=== PATIENT | female | born 1980 | race American Indian/Alaskan Native ===

== ENCOUNTER 2019-01-23 09:24 | Emergency (ER) | payer SELFPAY ==
[2019-01-23 09:32] VITALS: BP 135/91
--- NOTE | 2019-01-23 09:45 | Emergency Department Report ---
ED ENT HPI - General Chief complaint: Dental/Oral Stated complaint: RT SIDE TOOTHACHE/HEAD PRESSURE Time Seen by Provider: 01/23/19 09:40 Source: patient Mode of arrival: Ambulatory Limitations: No Limitations - History of Present Illness Initial comments: Chief complaint: I have a tooth abscess HPI this is a 39-year-old female without significant medical history who presents with right lower toothache with possible abscess for the past 4 days. She has mild swelling below her chin. Denies fever. She has pressure in her right ear. MD complaint: tooth pain -: Gradual Location: tooth # (30) Severity: severe Severity scale (0 -10): 8 Quality: aching, dull Consistency: constant Improves with: none Worsens with: eating - Related Data Previous Rx's Medication Instructions Recorded Last Taken Type Clindamycin [Clindamycin CAP] 300 mg PO TID 10 Days #30 cap 01/23/19 Unknown Rx Ibuprofen [Motrin 800 MG tab] 800 mg PO Q8HR PRN #20 tablet 01/23/19 Unknown Rx Allergies Allergy/AdvReac Type Severity Reaction Status Date / Time Penicillins Allergy Rash Verified 01/23/19 09:27 ED Dental HPI - General Chief complaint: Dental/Oral Stated complaint: RT SIDE TOOTHACHE/HEAD PRESSURE Time Seen by Provider: 01/23/19 09:40 Source: patient Mode of arrival: Ambulatory Limitations: No Limitations - Related Data Previous Rx's Medication Instructions Recorded Last Taken Type Clindamycin [Clindamycin CAP] 300 mg PO TID 10 Days #30 cap 01/23/19 Unknown Rx Ibuprofen [Motrin 800 MG tab] 800 mg PO Q8HR PRN #20 tablet 01/23/19 Unknown Rx Allergies Allergy/AdvReac Type Severity Reaction Status Date / Time Penicillins Allergy Rash Verified 01/23/19 09:27 ED Review of Systems ROS: Stated complaint: RT SIDE TOOTHACHE/HEAD PRESSURE Other details as noted in HPI Constitutional: denies: fever, malaise Eyes: denies: eye pain, eye discharge ENT: ear pain, dental pain. denies: throat pain Respiratory: denies: shortness of breath ED Past Medical Hx - Past Medical History Previous Medical History?: Yes Additional medical history: Childbirth x 5 - Surgical History Past Surgical History?: Yes Additional Surgical History: x 5 - Social History Smoking Status: Former Smoker - Medications Home Medications: Home Medications Medication Instructions Recorded Confirmed Last Taken Type Clindamycin [Clindamycin CAP] 300 mg PO TID 10 Days #30 cap 01/23/19 Unknown Rx Ibuprofen [Motrin 800 MG tab] 800 mg PO Q8HR PRN #20 tablet 01/23/19 Unknown Rx ED Physical Exam - General Limitations: No Limitations General appearance: alert, in no apparent distress - Head Head exam: Present: atraumatic, normocephalic - Eye Eye exam: Present: normal appearance - ENT ENT exam: Present: mucous membranes moist, other (mostly edentulous decaying teeth nubs at socket #26-28 mild swelling submandibular region ) - Neck Neck exam: Present: normal inspection, full ROM - GI/Abdominal GI/Abdominal exam: Present: soft. Absent: distended, tenderness, guarding, rebound - Neurological Exam Neurological exam: Present: alert, oriented X3 - Psychiatric Psychiatric exam: Present: normal affect, normal mood - Skin Skin exam: Present: warm, dry, intact, normal color ED Course Vital Signs 01/23/19 09:28 Temperature 98.3 F Pulse Rate 101 H Respiratory 18 Rate Blood Pressure 135/91 O2 Sat by Pulse 99 Oximetry ED Medical Decision Making - Medical Decision Making Odontogenic infection, suspect deep infection of the tooth's root, minimal swelling in the submandibular region rx: clindamycin Critical care attestation.: If time is entered above; I have spent that time in minutes in the direct care of this critically ill patient, excluding procedure time. ED Disposition Clinical Impression: Odontogenic infection of jaw Disposition: DC-01 TO HOME OR SELFCARE Is pt being admited?: No Does the pt Need Aspirin: No Condition: Stable Instructions: Dental Abscess (ED) Prescriptions: Clindamycin [Clindamycin CAP] 300 mg PO TID 10 Days #30 cap Ibuprofen [Motrin 800 MG tab] 800 mg PO Q8HR PRN #20 tablet PRN Reason: Pain , Severe (7-10) Referrals: [facility] [Outside] - 3-5 Days
[2019-01-23] MEDS ORDERED: CLEOCIN PO ONE (09:47)
[2019-01-23] MEDS ORDERED: IBUPROFEN PO ONE (09:47)
== END 2019-01-23 09:58 | disposition home or self-care (01) ==
LOC: ED 09:24
DX: K00.9 Disorder of tooth development, unspecified (principal); Z88.0 Allergy status to penicillin; Z79.899 Other long term (current) drug therapy; Z87.891 Personal history of nicotine dependence
CPT/HCPCS: 99282

== ENCOUNTER 2021-09-21 17:43 | Emergency (ER) | payer SELFPAY ==
[2021-09-21 22:32] LABS: Mean Corpuscular HGB Conc 28 % (30-34); Red Blood Count 5.17 M/mm3 (3.65-5.03)
[2021-09-21 22:35] LABS: Hematocrit 30.3 % (30.3-42.9); Hemoglobin 8.5 gm/dl (10.1-14.3); Mean Corpuscular Volume 59 fl (79-97); Platelet Count 258 K/mm3 (140-440); Red Cell Distribution Width 20.7 % (13.2-15.2)
[2021-09-21] MEDS ORDERED: ONDANSETRON 4 MG ODT TAB PO ONE (23:20)
[2021-09-21] MEDS ORDERED: ACETAMINOPHEN 325 MG TAB PO ONE (23:20)
[2021-09-21] MEDS ORDERED: KETOROLAC 30 MG/1 ML INJ IM ONE (23:20)
--- NOTE | 2021-09-21 23:26 | Emergency Department Report ---
ED General Adult HPI - General Chief complaint: Vaginal Bleeding Stated complaint: BLEEDING 2X WKS/LARGE CLOTS Time Seen by Provider: 09/21/21 22:56 Source: patient, RN notes reviewed, old records reviewed Mode of arrival: Ambulatory Limitations: No Limitations - History of Present Illness Initial comments: The patient was evaluated in the emergency department for symptoms described in the history of present illness. He/she was evaluated in the context of the global COVID-19 pandemic, which necessitated consideration that the patient might be at risk for infection with the virus that causes COVID-19. Institutional protocols and algorithms that pertain to the evaluation of patients at risk for COVID-19 are in a state of rapid change based on in formation released by regulatory bodies including the CDC and federal and state organizations. These policies and algorithms were followed during the patient's care in the emergency department. Please note that these policies, procedures and recommendations changed on a rapid basis. During the history and physical examination, I am chaperoned by Sampson Elizalde This is a 41-year-old female. She does not have a local primary care doctor or chief ophthalmic technician. She reports that she has not seen a physician for approximately 8 years. She presents to the ER today with multiple complaints. Her first complaint is vaginal bleeding and spotting, since August. It is associated lower abdominal cramping. No dysuria. Sexually active with 1 partner. Thinks it is very unlikely that she has an STI. Her next complaint is right upper quadrant pain, right below the breast. It increases with palpation. It has been present for a few days. It decreases with rest. No association with food. No nausea or vomiting. Positive diarrhea. No chest pain or shortness of breath. No DVT or PE risk factors. next complaint is non traumatic right-sided paracervical muscular neck pain, and shoulder pain. Present for days to weeks. Increases with palpation and range of motion. Decreases with rest -: Gradual, week(s) Location: abdomen, right, upper extremity Quality: aching Consistency: other Improves with: other Worsens with: other - Related Data Previous Rx's Medication Instructions Recorded Last Taken Type Acetaminophen [Non-Aspirin Extra 500 mg PO Q6HR PRN #30 tablet 09/22/21 Unknown Rx Strength] Ibuprofen [Motrin] 600 mg PO Q8H PRN #30 tablet 09/22/21 Unknown Rx Nitrofurantoin [place]/M-Cryst 100 mg PO Q12HR #14 capsule 09/22/21 Unknown Rx [Macrobid CAP] Ondansetron [Zofran Odt] 4 mg PO Q8HR PRN #20 tab.rapdis 09/22/21 Unknown Rx Allergies Allergy/AdvReac Type Severity Reaction Status Date / Time Penicillins Allergy Rash Verified 01/23/19 09:27 ED Review of Systems ROS: Stated complaint: BLEEDING 2X WKS/LARGE CLOTS Other details as noted in HPI Constitutional: denies: fever Eyes: denies: eye discharge ENT: denies: epistaxis Respiratory: denies: cough Cardiovascular: denies: chest pain Gastrointestinal: abdominal pain, diarrhea. denies: nausea, vomiting Genitourinary: abnormal menses. denies: urgency, dysuria Musculoskeletal: myalgia Neurological: denies: weakness Hematological/Lymphatic: denies: easy bleeding ED Past Medical Hx - Past Medical History Previous Medical History?: No Additional medical history: Childbirth x 5 - Surgical History Past Surgical History?: Yes Additional Surgical History: x 5 - Social History Smoking Status: Never Smoker Substance Use Type: None - Medications Home Medications: Home Medications Medication Instructions Recorded Confirmed Last Taken Type Acetaminophen [Non-Aspirin Extra 500 mg PO Q6HR PRN #30 tablet 09/22/21 Unknown Rx Strength] Ibuprofen [Motrin] 600 mg PO Q8H PRN #30 tablet 09/22/21 Unknown Rx Nitrofurantoin [place]/M-Cryst 100 mg PO Q12HR #14 capsule 09/22/21 Unknown Rx [Macrobid CAP] Ondansetron [Zofran Odt] 4 mg PO Q8HR PRN #20 tab.rapdis 09/22/21 Unknown Rx ED Physical Exam - General Limitations: No Limitations General appearance: alert, in no apparent distress, obese - Head Head exam: Present: atraumatic, normocephalic - Eye Eye exam: Present: normal appearance, EOMI - ENT ENT exam: Present: normal exam, normal orophraynx, mucous membranes moist, normal external ear exam - Neck Neck exam: Present: normal inspection, full ROM. Absent: tenderness, meningismus - Respiratory Respiratory exam: Present: normal lung sounds bilaterally. Absent: respiratory distress, wheezes, rales, rhonchi, stridor, decreased breath sounds - Cardiovascular Cardiovascular Exam: Present: regular rate, normal rhythm, normal heart sounds. Absent: bradycardia, tachycardia, irregular rhythm, systolic murmur, diastolic murmur, rubs, gallop - GI/Abdominal GI/Abdominal exam: Present: soft, tenderness, other (There is right upper quadrant tenderness to deep palpation. There is suprapubic and lower abdominal tenderness to deep palpation). Absent: distended, guarding, rebound, rigid, pulsatile mass - External exam: Present: normal external exam, bleeding, other (Patient provides consent for gynecologic examination) Speculum exam: Present: normal speculum exam, vaginal bleeding Bi-manual exam: Present: normal bi-manual exam, adnexal tenderness, uterine tenderness, other (Chaperoned by Destiney Elizalde.) - Extremities Exam Extremities exam: Present: normal inspection, full ROM, other (2+ pulses noted in the bilateral upper and lower extremities. There is no palpable cord. negative Homans sign. Muscular compartments are soft. The pelvis is stable.). Absent: pedal edema, calf tenderness - Back Exam Back exam: Present: normal inspection. Absent: tenderness, CVA tenderness (R), CVA tenderness (L), paraspinal tenderness, vertebral tenderness - Neurological Exam Neurological exam: Present: alert, oriented X3, normal gait, other (No facial droop. Tongue midline. Extraocular movements intact bilaterally. Facial sensation intact to light touch in V1, V2, V3 distribution bilaterally. 5 and a 5 strength in 4 extremities. Sensation intact to light touch in 4 extremities.). Absent: motor sensory deficit - Psychiatric Psychiatric exam: Present: normal affect, normal mood - Skin Skin exam: Present: warm, dry, intact, normal color. Absent: rash ED Course Vital Signs 09/21/21 09/21/21 23:29 23:33 Temperature 98.9 F 98.5 F Pulse Rate 78 75 Respiratory 16 12 Rate Blood Pressure 160/88 148/72 [Right] O2 Sat by Pulse 100 100 Oximetry - Reevaluation(s) Reevaluation #1: 09/21/21 23:24 Differential diagnosis, including not limited to: Dysfunctional uterine bleeding, ovarian cyst, ovarian fibroid, biliary colic, cholecystitis, pancreatitis,, musculoskeletal shoulder pain Assessment and plan: 41-year-old female with a body mass index of 33.3, with multiple complaints. First complaint is lower abdominal cramping associated with vaginal bleeding. She is not . Hemoglobin, hematocrit unremarkable. Mildly tender gynecologic examination. Do not suspect PID. Suspect dysfunctional uterine bl eeding. Obtain pelvic ultrasound. Treat symptoms. Next complaint is right upper quadrant pain, with right upper quadrant tenderness. Biliary colic is most likely. Check CMP and lipase, treat symptoms. Have requested that nursing team obtain vital signs. Next complaint is right shoulder and right trapezius pain. Full range of motion, without redness, pus or streaking. Neurovascularly intact. Pain medication, rest, ice, compression, elevation. Expectant management. Reassess. Discussed this plan of care with the patient. She is agreeable to the plan of care 09/22/21 02:57 Urinalysis demonstrates bacteriuria. Start Macrobid. Ultrasound shows evidence of choledocholithiasis, without evidence of cholecystitis. Gynecologic ultrasound is essentially unremarkable. Patient observed in this department for hours without clinical decompensation. We discussed diet lifestyle modifications for presumed biliary colic. Discharged with Macrobid, pain medication, nausea medication, she will need to follow-up with outpatient primary care and/or [employer]. Return precautions are reviewed. All questions answered ED Medical Decision Making - Lab Data Result diagrams: 09/21/21 21:55 09/21/21 23:20 Lab Results 09/21/21 09/21/21 Range/Units 21:55 21:55 WBC 9.7 (4.5-11.0) K/mm3 RBC 5.17 H (3.65-5.03) M/mm3 Hgb 8.5 L (10.1-14.3) gm/dl Hct 30.3 (30.3-42.9) % MCV 59 L (79-97) fl MCH 17 L (28-32) pg MCHC 28 L (30-34) % RDW 20.7 H (13.2-15.2) % Plt Count 258 (140-440) K/mm3 HCG, Quant < 2 (0-4) mIU/mL Lab Results 09/21/21 09/21/21 09/21/21 Range/Units 21:55 21:55 23:20 WBC 9.7 (4.5-11.0) K/mm3 RBC 5.17 H (3.65-5.03) M/mm3 Hgb 8.5 L (10.1-14.3) gm/dl Hct 30.3 (30.3-42.9) % MCV 59 L (79-97) fl MCH 17 L (28-32) pg MCHC 28 L (30-34) % RDW 20.7 H (13.2-15.2) % Plt Count 258 (140-440) K/mm3 Sodium 143 (137-145) mmol/L Potassium 4.7 (3.6-5.0) mmol/L Chloride 105.3 (98-107) mmol/L Carbon Dioxide 24 (22-30) mmol/L Anion Gap 18 mmol/L BUN 14 (7-17) mg/dL Creatinine 0.8 (0.6-1.2) mg/dL Estimated GFR > 60 ml/min BUN/Creatinine Ratio 18 % Glucose 90 (65-100) mg/dL Calcium 9.6 (8.4-10.2) mg/dL Total Bilirubin 0.20 (0.1-1.2) mg/dL AST 15 (5-40) units/L ALT 8 (7-56) units/L Alkaline Phosphatase 92 (35-129) units/L Total Protein 7.4 (6.3-8.2) g/dL Albumin 4.4 (3.9-5) g/dL Albumin/Globulin Ratio 1.5 % Lipase 30 (13-60) units/L HCG, Quant < 2 (0-4) mIU/mL Vital Signs 09/21/21 09/21/21 23:29 23:33 Temperature 98.9 F 98.5 F Pulse Rate 78 75 Respiratory 16 12 Rate Blood Pressure 160/88 148/72 [Right] O2 Sat by Pulse 100 100 Oximetry - Radiology Data Radiology results: pending, report reviewed, image reviewed ULTRASOUND ABDOMEN, LIMITED INDICATION / CLINICAL INFORMATION: ruq pain. C OMPARISON: Duplex Doppler of the pelvis 09/22/2021. TECHNIQUE: Using transcutaneous protocol multiple grayscale and color Doppler images were captured and stored of the pancreas, liver, aorta, inferior vena cava, gallbladder, common bile duct, and right kidney. Using endovaginal probe, multiple grayscale, color Doppler, and spectral Doppler images were captured and stored in the bilateral ovaries and uterus. FINDINGS: PANCREAS: Visualized portion shows no significant abnormality. AORTA: Longitudinal images of the aorta demonstrate no significant abnormality. IVC: Longitudinal images of the inferior vena cava demonstrate no significant abnormality. LIVER: Liver appears minimally hyperechoic compared to the right renal cortex suggesting hepatic steatosis. The right hepatic lobe measures 17.5 cm. Normal hepatopedal blood flow in the main portal vein. GALLBLADDER: Gallbladder wall th ickening measuring 5.8 mm is demonstrated. Numerous shadowing gallstones are suggested within the gallbladder lumen. BILE DUCTS: No choledocholithiasis. Common bile duct measures 4.2-5.8 mm mm. RIGHT KIDNEY: No acute findings are suggested to involve the right kidney. FREE FLUID: None. ADDITIONAL FINDINGS: None. PELVIC FINDINGS: Left ovary measures 4.1 x 2.0 x 3.6 cm. Small probable phy siologic cysts are present the largest measuring 2.0 x 1.4 x 1.9 cm. Color flow and arterial waveforms are present. No venous waveforms documented. Right ovary measures 3.9 x 2.2 x 4.4 cm. The right ovary is better visualized on comparison study. Small physiologic cysts are present. The uterus measures 10.9 x 5.2 x 6.8 cm and is better visualized comparison study. No abnormality of the uterus is demonstrated. Endometrial stripe is 3 mm. Small nabothian cysts are noted within the uterine cervix. IMPRESSION: 1. Multiple gallstones are suggested with associated wall thickening, no pericholecystic fluid. 2. Borderline to mild enlargement of the common bile duct. 3. No acute findings within the pelvis. Signer Name: Ceasar Mcrae II, MD Signed: 09/22/2021 1:33 AM Workstation Name: [id number] Critical care attestation.: If time is entered above; I have spent that time in minutes in the direct care of this critically ill patient, excluding procedure time. ED Disposition Clinical Impression: Dysmenorrhea, Negative test, Right upper quadrant abdominal pain, Right shoulder pain, ASB (asymptomatic bacteriuria), Biliary colic Disposition: 01 HOME / SELF CARE / HOMELESS Is pt being admited?: No Does the pt Need Aspirin: No Condition: Good Instructions: Biliary Colic, Adult, Dysmenorrhea Additional Instructions: Please avoid consumption of alcohol, tobacco, smoke products, heavy and spicy foods. Lose weight as able to, exercise as tolerated, and consume plenty of fiber, vegetables, and lean protein. Please follow-up with an outpatient primary care doctor within the next month. Please follow-up with an outpatient chief ophthalmic technician within the next month. Please return to the emergency room right away with new pain, worsened pain, migration of pain, projectile vomiting, change in mental status, confusion, inability tolerate liquid feeds, new, worsened or different symptoms not present on the initial emergency room evaluation Referrals: MADHURI BABIN MD [Primary Care Provider] - 3-5 Days [facility] [Provider Group] - 3-5 Days Forms: Work/School Release Form(ED)
[2021-09-21 23:34] VITALS: BP 148/72
[2021-09-21 23:36] LABS: Alanine Aminotransferase 8 units/L (7-56); Albumin 4.4 g/dL (3.9-5); BUN/Creatinine Ratio 18; Blood Urea Nitrogen 14 mg/dL (7-17); Calcium 9.6 mg/dL (8.4-10.2); Hemolysis Index 5
[2021-09-22 00:32] LABS: Bacteria,Urine 3+ /HPF (Negative); Bilirubin,Urine NEG (Negative); Blood,Urine NEG (Negative); Color,Urine Yellow (Yellow); Mucus,Urine 3+ /HPF; Protein,Urine <15 mg/dL mg/dL (Negative); Urobilinogen,Urine < 2.0 mg/dL (<2.0)
--- NOTE | 2021-09-22 02:24 | Ultrasound Report ---
US pelvis duplex doppler comp INDICATION / CLINICAL INFORMATION: Pelvic pain with heavy vaginal bleed COMPARISON: None available. TECHNIQUE: Using transcutaneous probe, color Doppler and spectral Doppler images were acquired of sathish ateral ovaries. FINDINGS: The right ovary demonstrates presence of color flow and arterial spectral waveforms. No venous wavefo ayad documented. Color flow not well demonstrated involving the left ovary. IMPRESSION: 1. Color flow within the left ovary not well visualized. Repeat study and/or further evaluation using endovaginal probe recommended. Signer Name: Ceasar Mcrae II, MD Signed: 09/22/2021 2:19 AM Workstation Name: [id number]
--- NOTE | 2021-09-22 02:37 | Ultrasound Report ---
ULTRASOUND ABDOMEN, LIMITED INDICATION / CLINICAL INFORMATION: ruq pain. COMPARISON: Duplex Doppler of the pelvis 09/22/2021. TECHNIQUE: Using transcutaneous protocol multiple grayscale and color Doppler images were captured an d stored of the pancreas, liver, aorta, inferior vena cava, gallbladder, common bile duct, and right kidney. Using endovaginal probe, multiple grayscale, color Doppler, and spectral Doppler images were captured and stored in the bilateral ovaries and uterus. FINDINGS: PANCREAS: Visualized portion shows no significant abnormality. AORTA: Longitudinal images of the aorta demonstrate no significant abnormality. IVC: Longitudinal images of the inferior vena cava demonstrate no significant abnormality. LIVER: Liver appears minimally hyperechoic compared to the right renal cortex suggesting hepatic stea tosis. The right hepatic lobe measures 17.5 cm. Normal hepatopedal blood flow in the main portal vein . GALLBLADDER: Gallbladder wall thickening measuring 5.8 mm is demonstrated. Numerous shadowing gallsto cristobal are suggested within the gallbladder lumen. BILE DUCTS: No choledocholithiasis. Common bile duct measures 4.2-5.8 mm mm. RIGHT KIDNEY: No acute findings are suggested to involve the right kidney. FREE FLUID: None. ADDITIONAL FINDINGS: None. PELVIC FINDINGS: Left ovary measures 4.1 x 2.0 x 3.6 cm. Small probable physiologic cysts are present the largest lso uring 2.0 x 1.4 x 1.9 cm. Color flow and arterial waveforms are present. No venous waveforms document ed. Right ovary measures 3.9 x 2.2 x 4.4 cm. The right ovary is better visualized on comparison study. Sm all physiologic cysts are present. The uterus measures 10.9 x 5.2 x 6.8 cm and is better visualized comparison study. No abnormality of the uterus is demonstrated. Endometrial stripe is 3 mm. Small nabothian cysts are noted within the ut erine cervix. IMPRESSION: 1. Multiple gallstones are suggested with associated wall thickening, no pericholecystic fluid. 2. Borderline to mild enlargement of the common bile duct. 3. No acute findings within the pelvis. Signer Name: Ceasar Mcrae II, MD Signed: 09/22/2021 2:33 AM Workstation Name: [id number]
== END 2021-09-22 03:30 | disposition home or self-care (01) ==
LOC: ED 17:43
DX: N94.6 Dysmenorrhea, unspecified (principal); R10.11 Right upper quadrant pain; M25.512 Pain in left shoulder; R82.71 Bacteriuria; K80.50 Calculus of bile duct without cholangitis or cholecystitis without obstruction; Z32.02 Encounter for pregnancy test, result negative; Z88.0 Allergy status to penicillin; Z79.899 Other long term (current) drug therapy
CPT/HCPCS: 36415; 76705; 76830; 80053; 81001; 83690; 84702; 85027; 93975; 96372; 99284; J1885; J3490; Q0162